=== PATIENT | female | born 1975 | race Caucasian/White ===

== ENCOUNTER 2024-03-25 21:50 | Emergency (ER) | payer OTHER, SELFPAY ==
[2024-03-25 21:54] VITALS: BP 124/78; BMI 24.3
--- NOTE | 2024-03-25 23:14 | ED.GENMED ---
History of Present Illness
General
Chief Complaint: Swelling
Source: patient
Exam Limitations: none
Time Seen by Provider: 03/25/24 22:09
Nursing documentation reviewed up to this point in time: agreed with
Travel History
Have you had any contact with someone who has COVID-19?: No
Do you have any symptoms of coronavirus? Fever > 100 degrees, chills, cough, shortness of breath, sore throat, loss of taste or smell, muscle aches, or headache?: No
History of Present Illness
History of Present Illness:
48-year-old female who has had a history of DVT in the past no longer anticoagulated, states she developed right calf pain yesterday and it feels the same as when she had a clot. She denies chest pain or shortness of breath.
Past History
Past History
ED Past Medical History: Other (Ulcerative colitis ) and Other (DVT 10/2022, was anticoagulated until 02/2023)
ED Past Surgical History: Orthopedic
Social History
Tobacco: Non-smoker
Alcohol: None
Drug: None
Personal:
Living: with family
Employment: Employed
Family History
Family History: Negative Diabetes, Hypertension or Early CAD
Review of Systems
Review of Systems
Allergies reviewed?: Yes
All Other Systems: ROS reviewed and negative except as documented in HPI and ROS
Constitutional: Denies fever
Respiratory: Denies trouble breathing
Cardiac: Denies chest pain
Musculoskeletal: Reports other (Right upper calf pain)
Skin: Reports no symptoms
Phy Exam
Physical Exam
Physical Exam:
GENERAL: No acute distress. A&Ox3.
CONSTITUTIONAL: Afebrile.
RESPIRATORY: Regular respirations, nonlabored, lungs clear.
CARDIOVASCULAR: Regular rate and rhythm, no murmurs, no rubs.
MUSCULOSKELETAL: Moves with ease. Well perfused. Right calf is without swelling, warmth or redness. Distal neurovascular intact. Mild tenderness at the proximal aspect of the calf
SKIN: Warm, dry, pink
PSYCH: Normal mood and affect. Well kept, interactive and appropriate
NEUROLOGIC: Awake, alert and oriented. No focal neurological deficits
Scores
Heart Failure Risk
Heart Failure Risk Score: Not Applicable
Course
Orders/Labs/Results
Orders:
Orders
03/25/24 22:10
US Periph Venous LOWER Ext RT Urgent
Comment:
Reason For Exam: pain calf, hx dvt, no thinners
Vital Signs
Initial and Last Documented VS:
Initial Vital Signs
Temp Pulse Resp BP Pulse Ox
98.2 F 64 16 124/78 99
03/25/24 21:54 03/25/24 21:54 03/25/24 21:54 03/25/24 21:54 03/25/24 21:54
Last Documented Vital Signs
Temp Pulse Resp BP Pulse Ox
98.2 F 55 18 105/74 98
03/25/24 21:54 03/25/24 23:59 03/25/24 23:59 03/25/24 23:59 03/25/24 23:59
MDM/Problems Addressed
Differential Diagnosis Includes:
DVT, calf strain
MDM/Problems Addressed:
48-year-old female who has had a history of DVT in the past no longer anticoagulated, states she developed right calf pain yesterday and it feels the same as when she had a clot. She denies chest pain or shortness of breath.
Ultrasound negative for DVT.
*Critical Care Note
Total Time (30-74mins, 75-104mins- exclusive of procedures): Not Applicable
ED Attending Note
-
Portions of this chart may have been created with voice recognition software.� Occasional wrong word or��sound alike� substitutions may have occurred due to the inherent limitations of voice recognition software.
Discharge Plan
Departure
Patient Disposition: Home (Routine Discharge)
Date of Disposition: 03/25/24
Time of Disposition: 23:17
Patient with high blood pressure during this ER visit?: No
Condition: Good
Discharge Problem:
Right calf pain
Instructions: Musculoskeletal Pain
Prescriptions:
No Action
azathioprine 50 MG tablet
100 mg PO HS
mesalamine [Lialda] 1.2 GM tablet,delayed release (DR/EC)
3.6 gm PO DAILY
prenat.vits,sarah,gcj-gekf-frltz [ Vitamin] 1 TAB tablet
1 tab PO
Eliquis DVT-PE Treat 30D Start 5 mg (74 tabs) tablets,dose pack
See Rx Instructions .ROUTE .COMPLEX Qty: 74 0RF
Rx Instructions:
orally per package directions (10 MG TWICE A DAY FOR 7 DAYS THEN 5 MG TWICE A DAY)
Referrals:
Ely Mahmood PA-C [Family Provider] - As needed
Activity Restrictions/Additional Instructions:
Your ultrasound shows no clot.
Interventions
Interventions:
*Risk Screen - Suicide Last Done: 03/25/24 21:54
*General Assessment Last Done: 03/25/24 22:23
*Neglect/Abuse Screening Last Done: 03/25/24 21:54
ED- Fall Risk Assessment Last Done: 03/25/24 21:54
*ED COVID-19 Vaccine History Last Done: 03/25/24 22:23
*Nursing Disposition Last Done: 03/25/24 23:59
ED- Cardiac Assessment Last Done: 03/25/24 22:21
ED- Pulmonary Assessment Last Done: 03/25/24 22:21
ED-Skin Assessment Last Done: 03/25/24 22:21
Discharge Date and Time
Discharge Date/Time: 03/26/24 00:01
Print Language: [id number]
[2024-03-25 23:59] VITALS: BP 105/74
== END 2024-03-26 00:01 | disposition home or self-care (01) ==
LOC: EMR 21:50
PROVIDERS: EMERGENCY PHYSICIAN Student in an Organized Health Care Education/Training Program; FAMILY PHYSICIAN Physician Assistant Medical
DX: M79.661 Pain in right lower leg (principal); K51.90 Ulcerative colitis, unspecified, without complications; Z86.718 Personal history of other venous thrombosis and embolism; Z88.1 Allergy status to other antibiotic agents; Z88.5 Allergy status to narcotic agent; Z88.2 Allergy status to sulfonamides
CPT/HCPCS: 99284; 93971

== ENCOUNTER 2024-06-25 07:13 | Outpatient (RCR) | payer OTHER, SELFPAY | END 2024-06-25 23:59 | disposition home or self-care (01) | LOC: RPT 07:13 | PROVIDERS: ATTENDING PHYSICIAN Orthopaedic Surgery Sports Medicine; FAMILY PHYSICIAN Physician Assistant Medical | DX: M17.11 Unilateral primary osteoarthritis, right knee (principal); Z73.6 Limitation of activities due to disability | CPT/HCPCS: 97110; 97161 ==

== ENCOUNTER 2024-08-02 06:52 | Outpatient (RCR) | payer OTHER, SELFPAY | END 2024-08-02 23:59 | disposition home or self-care (01) | LOC: RPT 06:52 | PROVIDERS: ATTENDING PHYSICIAN Orthopaedic Surgery Sports Medicine; FAMILY PHYSICIAN Physician Assistant Medical | DX: M17.11 Unilateral primary osteoarthritis, right knee (principal); Z73.6 Limitation of activities due to disability; M25.561 Pain in right knee; M62.81 Muscle weakness (generalized); R26.89 Other abnormalities of gait and mobility | CPT/HCPCS: 97110; 97140 ==

== ENCOUNTER 2024-08-30 09:05 | Outpatient (RCR) | payer OTHER, SELFPAY | END 2024-08-30 23:59 | disposition home or self-care (01) | LOC: RPT 09:05 | PROVIDERS: ATTENDING PHYSICIAN Orthopaedic Surgery Sports Medicine; FAMILY PHYSICIAN Physician Assistant Medical | DX: M17.11 Unilateral primary osteoarthritis, right knee (principal); Z73.6 Limitation of activities due to disability; M62.81 Muscle weakness (generalized) | CPT/HCPCS: 97110; 97140 ==

== ENCOUNTER → 2024-10-08 07:32 | Outpatient (REF) | payer OTHER, SELFPAY | LOC: WDC 07:32 | PROVIDERS: ATTENDING PHYSICIAN Nurse Practitioner Adult Health | DX: Z12.31 Encounter for screening mammogram for malignant neoplasm of breast (principal) | CPT/HCPCS: 77063; 77067 ==

== ENCOUNTER → 2025-05-17 16:39 | Outpatient (REF) | payer OTHER, SELFPAY | LOC: RAD 16:39 | PROVIDERS: ATTENDING PHYSICIAN Family Medicine; FAMILY PHYSICIAN Physician Assistant Medical | DX: R10.30 Lower abdominal pain, unspecified (principal); R31.29 Other microscopic hematuria | CPT/HCPCS: 76770 ==

== ENCOUNTER → 2025-05-18 18:29 | Outpatient (REF) | payer OTHER, SELFPAY | LOC: RAD 18:29 | PROVIDERS: ATTENDING PHYSICIAN Family Medicine | DX: M54.59 Other low back pain (principal) | CPT/HCPCS: 72110 ==

== ENCOUNTER → 2025-07-12 15:03 | Outpatient (REF) | payer OTHER, SELFPAY | LOC: RAD 15:03 | PROVIDERS: ATTENDING PHYSICIAN Student in an Organized Health Care Education/Training Program | DX: M48.061 Spinal stenosis, lumbar region without neurogenic claudication (principal); M54.16 Radiculopathy, lumbar region; M81.0 Age-related osteoporosis without current pathological fracture | CPT/HCPCS: 77080 ==

== ENCOUNTER → 2025-08-07 07:07 | Outpatient (REF) | payer OTHER, SELFPAY | LOC: PAVMRI 07:07 | PROVIDERS: ATTENDING PHYSICIAN Student in an Organized Health Care Education/Training Program; FAMILY PHYSICIAN Physician Assistant Medical | DX: S32.030A Wedge compression fracture of third lumbar vertebra, initial encounter for closed fracture (principal); M54.50 Low back pain, unspecified; M79.18 Myalgia, other site | CPT/HCPCS: 72148 ==

== ENCOUNTER 2025-10-04 06:27 | Outpatient (RCR) | payer OTHER, SELFPAY | END 2025-10-04 23:59 | disposition home or self-care (01) | LOC: RPT 06:27 | PROVIDERS: ATTENDING PHYSICIAN Student in an Organized Health Care Education/Training Program; FAMILY PHYSICIAN Physician Assistant Medical | DX: M54.40 Lumbago with sciatica, unspecified side (principal); M79.18 Myalgia, other site; Z73.6 Limitation of activities due to disability; S32.039D Unspecified fracture of third lumbar vertebra, subsequent encounter for fracture with routine healing; X58.XXXD Exposure to other specified factors, subsequent encounter | CPT/HCPCS: 97112; 97161; 97530 ==

== ENCOUNTER → 2025-10-11 07:43 | Outpatient (REF) | payer OTHER, SELFPAY | LOC: WDC 07:43 | PROVIDERS: ATTENDING PHYSICIAN Nurse Practitioner Adult Health | DX: Z12.31 Encounter for screening mammogram for malignant neoplasm of breast (principal) | CPT/HCPCS: 77063; 77067 ==